=== PATIENT | male | born 1995 | race Caucasian/White ===

== ENCOUNTER 2022-03-02 09:43 | Emergency (ER) | payer SELFPAY ==
[2022-03-02 09:53] VITALS: BP 118/67; PULSE 76; RESP 17; TEMP 36.6; O2SAT 98; BMI 26.9
--- NOTE | 2022-03-02 10:13 | ED.GENADULT ---
HPI - General Adult General Chief complaint: General Medical Stated complaint: throat pain/chest pain/headaches Time Seen by Provider: 03/02/22 10:10 Source: patient Mode of arrival: ambulatory Limitations: no limitations History of Present Illness HPI narrative: 26 y/o male presents to the ER with sore throat and swollen uvula for the last 2 days. He also reports headaches. He reports pain with eating and drinking but has been able to tolerate PO. He denies fever or chills. No cough, difficulty breathing or noisy breathing. No voice changes or difficulty handling secretions. No known sick contacts. MD complaint: sore throat Onset (ago): day(s) (2) Location: head and mouth Radiation: non-radiation Severity: moderate Severity scale (1-10): 5 Quality: aching Pain Consistency: constant Relieving factors: none Exacerbating factors: eating Associated symptoms: headaches Treatments prior to arrival: none Related Data Previous Rx's Medication Instructions Recorded amoxicillin 500 mg tablet 500 mg PO Q12H #14 tab 03/02/22 ibuprofen 600 mg tablet 600 mg PO Q8H PRN #14 tab 03/02/22 Allergies Allergy/AdvReac Type Severity Reaction Status Date / Time No Known Allergies Allergy Unverified 07/07/20 19:24 [No Known Allergies*] Review of Systems Review of Systems: Constitutional: No Fever, No Chills ENT/Mouth: + sore throat, No Rhinorrhea, + Swallowing Difficulty Cardiovascular: No Chest Pain, No SOB Respiratory: No Cough, No Sputum, No Wheezing, No dyspnea Gastrointestinal: No Nausea, No Vomiting, No Diarrhea, No abdominal Pain Musculoskeletal: No joint pain, No Myalgias Skin: No Skin Lesions, No rash Neuro: No Weakness, No Numbness, No Dizziness, + Headache Heme/Lymph: No Bruising, No Lymphadenopathy PMFSH Social History Social History Advance Directives: No Advance Directives Information Provided: No Physical Exam ED Vital Signs: Vital Signs - 24 hr 03/02/22 09:53 Temperature 98 F Pulse Rate 76 Respiratory Rate 17 Blood Pressure 118/67 Pulse Oximetry 98 BMI result Body Mass Index 26.9 Appearance: Alert. Oriented X3. No acute distress. HEENT: normal external inspection, normal voice and handling secretions normally. Posterior pharynx with moderate pharyngeal erythema and mild uvular swelling. No tonsillar swelling or exudates. Ears are normal to inspection with no erythema of the tympanic membranes. No submandibular lymphadenopathy. CVS: Normal heart rate and rhythm. Pulses normal. Respiratory: No respiratory distress. Skin: Skin warm and dry. Normal skin color. Normal skin turgor. No rashes. Extremities: normal inspection, normal ROM x4. Neuro: Oriented X 3. Grossly normal, nonfocal. Course Course Course Narrative: 26-year-old otherwise healthy male presents to the ER with 2 days of sore throat and swollen uvula. He reports pain with swallowing. He is nontoxic appearing on arrival and vital signs are normal. He has no evidence of supraglottitis at this time. He does have a mildly swollen uvula, normal voice and handling secretions normally. Will check COVID swab influenza swab and strep throat. Reevaluation(s) Reevaluation #1: All swabs are negative. Given his swollen uvula will empirically treat with amoxicillin. Given strict return precautions, stable for discharge home. Medical Decision Making Lab Data Labs: Lab Results 03/02/22 03/02/22 03/02/22 Range/Units 09:57 10:57 10:57 COVID-19 ([facility]) Negative (Negative) COVID-19 Clin Com See Note Influenza Type A ([facility]) Negative (Negative) Influenza Type B ([facility]) Negative (Negative) Influenza A & B Note See Note S. pyogenes GrpA [facility] Negative (Negative) Critical Care Time Critical Care Time Critical Care Time: No Discharge Plan Discharge Clinical Impression: Pharyngitis, Swollen uvula Patient Disposition: Home, Self-Care Instructions: Pharyngitis (ED) Additional Instructions: You are negative for strep throat, influenza and COVID-19. Take the prescribed antibiotic as directed for possible bacterial infection of your throat/uvula. Recommend warm salt water gargles several times per day. Recommend [id number] Chloraseptic spray or Cepacol lozenges to help numb the back of your throat. Take Motrin and/or Tylenol as needed for headaches and throat pain. Follow up with your doctor as needed. If you develop new or worsening symptoms call 911 or come back to the ER for further evaluation. Prescriptions: New amoxicillin 500 mg tablet 500 mg PO Q12H Qty: 14 0RF ibuprofen 600 mg tablet 600 mg PO Q8H PRN (Reason: fever or pain) Qty: 14 0RF
[2022-03-02 10:35] LABS: IDNOW Serial# 08D9AD1C; Strep A Nucleic Acid Negative (Negative)
[2022-03-02] MEDS: Ibuprofen 600 MG TABLET PO (10:54)
[2022-03-02 11:24] LABS: COVID-19 Test Negative (Negative); IDNOW Serial# 9DD0AD1C; Influenza A Negative (Negative); Influenza B2 Negative (Negative)
== END 2022-03-02 11:59 | disposition home or self-care (01) ==
PROVIDERS: Physician Assistant; Emergency Provider Emergency Medicine
DX: J02.9 Acute pharyngitis, unspecified (principal); K13.79 Other lesions of oral mucosa; Z20.822 Contact with and (suspected) exposure to COVID-19
CPT/HCPCS: 36415; 87502; 87635; 87651; 99283

== ENCOUNTER 2022-03-06 10:29 | Emergency (ER) | payer OTHER, SELFPAY ==
[2022-03-06 11:18] VITALS: BP 115/70; PULSE 82; RESP 19; TEMP 37.1; O2SAT 99; BMI 26.9
[2022-03-06 11:47] LABS: Strep A Nucleic Acid Negative (Negative)
[2022-03-06 11:52] LABS: COVID-19 Test Negative (Negative); IDNOW Serial# 9DB6401D
[2022-03-06 12:19] LABS: IDNOW Serial# 9DB6401D; Influenza A Negative (Negative); Influenza B2 Negative (Negative)
--- NOTE | 2022-03-06 12:40 | ED.URI ---
HPI - URI/Sore Throat General Chief Complaint: Upper Respiratory Symptoms Stated Complaint: sore throat Time Seen by Provider: 03/06/22 12:32 Source: patient Mode of arrival: ambulatory Limitations: no limitations History of Present Illness HPI Narrative: 26-year-old male who is seen 4 days ago and tested negative for COVID and flu, presents for 6 days of sore throat symptoms. States that he has been congested, is eyes are itchy, he has a headache, and has started his felt scratchy. No pain with swallowing, he can eat and drink okay His sore throat is not as bad as it was 4 days ago, but is still present No fevers, voice changes, recent dental instrumentation, trouble opening his mouth, chest pain, shortness of breath, abdominal pain, nausea, vomiting, diarrhea MD elicited complaint: sore throat Onset (ago): day(s) (6) Consistency: improved Severity: moderate Able to tolerate fluids by mouth: Yes Exacerbating factors: nothing Related Data Previous Rx's Medication Instructions Recorded amoxicillin 500 mg tablet 500 mg PO Q12H #14 tab 03/02/22 ibuprofen 600 mg tablet 600 mg PO Q8H PRN #14 tab 03/02/22 prednisone 20 mg tablet 40 mg PO DAILY 5 Days #10 tab 03/06/22 Allergies Allergy/AdvReac Type Severity Reaction Status Date / Time No Known Allergies Allergy Verified 03/06/22 11:18 [No Known Allergies*] Review of Systems Constitutional: Constitutional: Denies body ache(s), Denies chills, Denies fatigue, Denies fever(s), Reports headache(s), Denies malaise and Denies weakness Eyes: Eyes: Denies diplopia ENT: Denies vertigo, Denies dizziness, Denies otalgia, Reports headache(s), Denies mouth pain, Reports nasal congestion, Denies post nasal drip, Denies sinus pain, Denies sinus pressure, Reports sore throat and Denies throat swelling Cardiovascular: Cardiovascular: Denies chest pain, Denies syncope, Denies leg edema, Denies lightheadedness, Denies Loss of Consciousness, Denies palpitations and Denies dyspnea Respiratory: Respiratory: Denies chest congestion, Denies cough and Denies dyspnea Gastrointestinal: Gastrointestinal: Denies abdominal pain, Denies hematochezia, Denies constipation, Denies diarrhea and Denies vomiting Musculoskeletal: Musculoskeletal: Reports no additional musculoskeletal complaints Neurologic: Denies confusion, Denies vertigo, Denies dizziness, Denies syncope, Reports headache(s) and Denies weakness Psychiatric: Psychiatric: Denies anxiety, Denies confusion and Denies depression Endocrine: Endocrine: Denies fatigue and Denies palpitations Allergic/Immunologic: Allergic/Immunologic: Denies throat swelling PMFSH Social History Social History (System 03/06/22 @ 10:41 by Angie Cavazos) Advance Directives: No Advance Directives Information Provided: No Physical Exam Vital Signs: Vital Signs: Last Vital Signs Temp 98.7 F 03/06/22 11:18 Pulse 82 03/06/22 11:18 Resp 19 03/06/22 11:18 BP 115/70 03/06/22 11:18 Pulse Ox 99 03/06/22 11:18 BMI result Body Mass Index 26.9 Const: General: No confusion Nutritional Appearance: well nourished Orientation/consciousness: No confusion Limitations: no limitations HEENT: Head: Yes normal to inspection, Yes normocephalic and Yes atraumatic Ears: hearing grossly normal bilaterally, external ears normal, TM's normal bilaterally and EAC's normal General nose exam: Normal external nose present Face and sinus: Yes normal facial exam and Yes sinuses nontender Mouth: Normal oral and palatal mucosa present Throat: Yes tonsils normal, Yes uvula midline, No peritonsillar mass, Yes posterior oropharynx abnormal (Erythema deep right posterior oropharynx), No uvular edema and No cobblestoning Eyes: Conjunctivae: conjunctivae normal Pupils: Equal, round and reactive pupils present EOM: EOMs intact bilaterally Neck: Neck: Yes full ROM, Yes no lymphadenopathy and Yes supple Resp: Effort & Inspection: normal respiratory effort and able to speak in complete sentences Auscultation: clear to auscultation bilaterally, no crackles, no rales, no rhonchi and no wheezes Cardio: Rate: regular rate Rhythm: regular rhythm Heart sounds: S1 normal heart sound present and S2 normal heart sound present GI: Inspection: Yes normal to inspection Palpation (GI): Soft to palpation, nontender, no guarding and not rigid Percussion: Yes normal to percussion Auscultation: normal bowel sounds Skin: General skin exam: no rashes or lesions noted Neuro: General: No confusion Cranial nerves: Yes Equal, round and reactive pupils present Extrem: General: Yes normal to inspection and Yes full ROM Psych: Appearance: grossly normal Affect: normal affect Attitude: cooperative Thought process: Normal thought process present Course Course Course Narrative: 26-year-old male presents for 6 days of improved but still present sore throat. Patient is COVID, strep, influenza negative today. On exam, patient is stable vitals, will treat with short course of prednisone, gave return precautions MDM - URI/Sore Throat Lab Data Labs: Lab Results 03/06/22 03/06/22 03/06/22 Range/Units 11:22 11:22 12:00 COVID-19 ([facility]) Negative (Negative) COVID-19 Clin Com See Note Influenza Type A ([facility]) Negative (Negative) Influenza Type B ([facility]) Negative (Negative) Influenza A & B Note See Note S. pyogenes GrpA [facility] Negative (Negative) Discharge Plan Discharge Clinical Impression: Pharyngitis, acute Patient Disposition: Home, Self-Care Instructions: Pharyngitis (ED) Additional Instructions: Please use salt water gargles, take prednisone as prescribed, please return if you have any trouble swallowing, fevers, worsening pain, or any other new or concerning symptoms Prescriptions: New prednisone 20 mg tablet 40 mg PO DAILY 5 Days Qty: 10 0RF No Action amoxicillin 500 mg tablet 500 mg PO Q12H Qty: 14 0RF ibuprofen 600 mg tablet 600 mg PO Q8H PRN (Reason: fever or pain) Qty: 14 0RF Stand Alone Forms: Work/School Release
== END 2022-03-06 12:52 | disposition home or self-care (01) ==
PROVIDERS: Physician Assistant; Emergency Provider Emergency Medicine
DX: J02.9 Acute pharyngitis, unspecified (principal); Z79.899 Other long term (current) drug therapy; Z20.822 Contact with and (suspected) exposure to COVID-19
CPT/HCPCS: 87502; 87635; 87651; 99283